=== PATIENT | female | born 1970 | race Caucasian/White ===

== ENCOUNTER 2017-06-20 13:05 | Emergency (ER) | payer MEDICAID ==
[2017-06-20] MEDS: SODIUM CHLOR 0.9% 1000 ML INJ 1,000 ML IV (15:07)
[2017-06-20] MEDS: MORPHINE SULFATE 4 MG/ML INJ IV PUSH (15:07)
[2017-06-20] MEDS: ONDANSETRON HCL 4 MG/2 ML VIAL IV PUSH (15:08)
[2017-06-20] MEDS: KETOROLAC TROMETHAMINE 30 MG/ML (IVP) VIAL IV PUSH (15:08)
[2017-06-20] MEDS: TAMSULOSIN HCL 0.4 MG CAP PO (15:08)
== END 2017-06-20 16:32 | disposition home or self-care (01) ==
LOC: NEPD 13:05
DX: N20.0 Calculus of kidney (principal); I10 Essential (primary) hypertension; F17.210 Nicotine dependence, cigarettes, uncomplicated; Z87.442 Personal history of urinary calculi; Z88.5 Allergy status to narcotic agent; Z79.899 Other long term (current) drug therapy
CPT/HCPCS: 74176; 96361; 96374; 96375; 99284-25